=== PATIENT | female | born 1965 | race Two or more races ===

== ENCOUNTER 2024-09-03 13:50 | Inpatient (IN) | payer OTHER ==
[~2024-09-03] VITALS: Ht 160 cm; Wt 122.4 kg
[2024-09-03 15:02] LABS: Basophils # (auto) 0.1 10 ^3/uL (0-0.2); Basophils % (auto) 1.1 % (0.0-2.0); Eosinophils # (auto) 0.1 10 ^3/uL (0-0.8); Eosinophils % (auto) 0.6 % (0.0-7.0); Hematocrit 42.7 % (36.0-46.0); Hemoglobin 14.5 g/dL (12.2-16.2); Lymphocytes # (auto) 2.6 10 ^3/uL (0.4-5.4); Lymphocytes % (auto) 29.3 % (10.0-50.0); Mean Corpuscular Hemoglobin 30.7 pg (28.0-32.0); Mean Corpuscular Hgb Conc. 33.8 g/dL (32.0-36.0); Mean Corpuscular Volume 90.9 fL (80.0-100.0); Monocytes # (auto) 0.7 10 ^3/uL (0-1.3); Monocytes % (auto) 7.9 % (0.0-12.0); Neutrophils # (auto) 5.4 10 ^3/uL (1.6-8.6); Neutrophils % (auto) 61.1 % (37.0-80.0); Platelet Count (auto) 285 10^3/uL (140-450); Red Cell Distribution Width 13.9 % (11.8-14.3); White Blood Cell 8.8 10^3/uL (4.4-10.8)
[2024-09-03 15:07] LABS: Chloride 110 mmol/L (98-107); Potassium 3.3 mmol/L (3.5-5.1); Sodium 143 mmol/L (136-145)
[2024-09-03 15:08] LABS: Anion Gap 10 (5-15); Calcium 9.9 mg/dL (8.7-10.4); Carbon Dioxide 23 mmol/L (20-31)
[2024-09-03 15:13] LABS: BUN/Creatinine Ratio 15.8 (10.0-20.0); Blood Urea Nitrogen 12 mg/dL (9-23); Glucose 219 mg/dL (74-106)
[2024-09-03 15:24] LABS: Urine Bacteria FEW /hpf (None Seen); Urine Blood 3+ /uL (Negative); Urine Budding Yeast MODERATE /hpf (None Seen); Urine Clarity Turbid (Clear); Urine Color Colorless (Yellow); Urine Protein, UAD TRACE (Negative); Urine Specific Gravity 1.015 (1.001-1.035); Urine Urobilinogen Normal (Negative); Urine WBC 155 /hpf (0 - 5); Urine WBC Clumps PRESENT /hpf (None Seen); Urine pH 6.5 (5.0-9.0)
[2024-09-03 18:21] VITALS: PULSE 106; RESP 14; O2SAT 95
[2024-09-03 19:51] VITALS: PULSE 103; RESP 22; O2SAT 95
[2024-09-03] MEDS ORDERED: HYDROcodone-ACET 5/325MG TAB PO PRN (22:15)
[2024-09-03] MEDS ORDERED: DOCUSATE SOD 100 MG CAP PO PRN (22:15)
[2024-09-03] MEDS ORDERED: NITROGLYCERIN 0.4 MG SL TAB SL PRN (22:15)
[2024-09-03] MEDS ORDERED: hydrALAZINE HCL 20 MG/ML VL IV PRN (22:15)
[2024-09-03] MEDS ORDERED: ONDANSETRON HCL 4 MG/2 ML VIAL IV PRN (22:15)
[2024-09-03] MEDS ORDERED: MORPHINE SULFATE INJ 2 MG/ml SYRG IV PRN ×2 (22:15)
[2024-09-03] MEDS ORDERED: DEXTROSE (50%) 50ML SYRG IV PRN (22:15)
[2024-09-03] MEDS: levoFLOXacin 500MG 100 ML IV ONE (22:15)
[2024-09-03] MEDS: POTASSIUM CHL 20 Meq TABLET PO ONE (22:35)
[2024-09-04] VITALS (7 sets, daily range): BP systolic 120–144; BP diastolic 51–74; PULSE 78–107; RESP 16–18; TEMP 98.1–98.9; O2SAT 0–96
[2024-09-04] MEDS ORDERED: FLUO10TA18 PO (00:54)
[2024-09-04] MEDS ORDERED: METF-372 PO (00:54)
[2024-09-04] MEDS ORDERED: LOSA-534 PO (00:54)
[2024-09-04] MEDS ORDERED: HYDR25TA5 PO (00:54)
[2024-09-04] MEDS ORDERED: PIOG1TAB36 PO (00:54)
[2024-09-04] MEDS ORDERED: SEMA1INJ2 SC (00:55)
[2024-09-04] MEDS: SODIUM CHLOR 0.9% PF (SALINE LOCK) 10ML VIAL/SYR IV SCH (06:15)
[2024-09-04] MEDS: ACCU-CHEK COMFORT CURVE STRIP VI SCH (06:37)
[2024-09-04] MEDS: InsuLIN REG 1unit/0.01ml Soln (100units/ml) SC SCH ×2 (06:38→22:51)
[2024-09-04 07:49] LABS: Basophils # (auto) 0.1 10 ^3/uL (0-0.2); Basophils % (auto) 0.7 % (0.0-2.0); Eosinophils # (auto) 0.1 10 ^3/uL (0-0.8); Eosinophils % (auto) 0.7 % (0.0-7.0); Hematocrit 39.7 % (36.0-46.0); Hemoglobin 13.1 g/dL (12.2-16.2); Lymphocytes # (auto) 3.2 10 ^3/uL (0.4-5.4); Lymphocytes % (auto) 26.4 % (10.0-50.0); Mean Corpuscular Hemoglobin 29.6 pg (28.0-32.0); Mean Corpuscular Volume 89.7 fL (80.0-100.0); Monocytes # (auto) 1.4 10 ^3/uL (0-1.3); Monocytes % (auto) 11.5 % (0.0-12.0); Neutrophils # (auto) 7.2 10 ^3/uL (1.6-8.6); Neutrophils % (auto) 60.7 % (37.0-80.0); Platelet Count (auto) 268 10^3/uL (140-450); Red Blood Cells 4.42 10^6/uL (4.0-5.20); Red Cell Distribution Width 14.2 % (11.8-14.3); White Blood Cell 11.9 10^3/uL (4.4-10.8)
[2024-09-04 07:59] LABS: Alanine Aminotransferase 16 U/L (7-40); Albumin 4.2 g/dL (3.2-4.8); Alkaline Phosphatase 79 U/L (46-116); Anion Gap 9 (5-15); Aspartate Aminotransferase 10 U/L (13-40); BUN/Creatinine Ratio 16.7 (10.0-20.0); Bilirubin, Total 0.7 mg/dL (0.2-1.0); Blood Urea Nitrogen 9 mg/dL (9-23); Calcium 9.5 mg/dL (8.7-10.4); Carbon Dioxide 23 mmol/L (20-31); Chloride 111 mmol/L (98-107); Glucose 153 mg/dL (74-106); Potassium 3.4 mmol/L (3.5-5.1); Sodium 143 mmol/L (136-145)
[2024-09-04] MEDS: levoFLOXacin 500MG 100 ML IV SCH (11:57)
[2024-09-04] MEDS: ACETAMINOPHEN 325 MG TAB PO PRN (12:33)
[2024-09-04] MEDS ORDERED: LEVO500T91 PO (17:55)
[2024-09-05 01:00] VITALS: BP 122/87; PULSE 97; RESP 18; TEMP 98.8; O2SAT 95
[2024-09-05 05:00] VITALS: BP 136/67; PULSE 97; RESP 17; TEMP 98.6; O2SAT 95
[2024-09-05 08:00] VITALS: PULSE 62
[2024-09-05 09:00] VITALS: BP 144/73; PULSE 70; RESP 16; TEMP 98.3; O2SAT 98
[2024-09-05] MEDS: levoFLOXacin 500 MG TAB PO SCH (11:06)
[2024-09-05] MEDS ORDERED: NITR-52 PO (12:38)
[2024-09-05 13:00] VITALS: BP 142/72; PULSE 93; RESP 18; TEMP 98.1; O2SAT 98
[2024-09-05] MEDS: NITROFURANTOIN 100 mg CAP PO ONE (14:10)
[2024-09-05 17:00] VITALS: BP 129/65; PULSE 89; RESP 16; TEMP 98.8; O2SAT 98
== END 2024-09-05 18:20 | disposition home or self-care (01) | DRG 249 ==
LOC: ER 13:50 → OVERFLOW 22:07 → CENTRAL 22:14
PROVIDERS: ADMIT Nurse Practitioner Family; ATTEND Internal Medicine
DX: K52.9 Noninfective gastroenteritis and colitis, unspecified (principal); N13.6 Pyonephrosis; E11.65 Type 2 diabetes mellitus with hyperglycemia; E87.6 Hypokalemia; I10 Essential (primary) hypertension; Z90.49 Acquired absence of other specified parts of digestive tract; Z88.0 Allergy status to penicillin; Z83.3 Family history of diabetes mellitus; Z90.710 Acquired absence of both cervix and uterus; N20.2 Calculus of kidney with calculus of ureter
CPT/HCPCS: 36415; 74176; 80048; 80053; 81001; 82962; 85025; 87086; G0378; J1815; J1956